=== PATIENT | female | born 1995 | race Caucasian/White ===

== ENCOUNTER 2017-06-05 10:50 | Emergency (ER) | payer BC ==
[2017-06-05 11:14] LABS: URINE APPEARANCE CLEAR; URINE BILIRUBIN NEGATIVE (NEGATIVE); URINE BLOOD MODERATE (NEGATIVE); URINE COLOR YELLOW; URINE GLUCOSE (UA) NEGATIVE (NEGATIVE); URINE KETONE NEGATIVE (NEGATIVE); URINE LEUKOCYTE ESTERASE TRACE (NEGATIVE); URINE NITRITE NEGATIVE (NEGATIVE); URINE PROTEIN NEGATIVE (NEGATIVE); URINE UROBILINOGEN 0.2 E.U./dL (0.20 - 1.00)
--- NOTE | 2017-06-05 11:14 | Emergency Department Record ---
History of Present Illness - General Chief Complaint: Abdominal Pain Stated Complaint: ABD PAIN Time Seen by Provider: 06/05/17 10:55 Source: Patient, Family Mode of Arrival: Ambulatory Limitations: No limitations - History of Present Illness Initial Comments: 21 yo female presents with blood in her urine that started on Monday. She noted drops of blood in the toilet. Starting the last day she has developed lower abdominal cramps as well. She started a menstrual cycle that seems more uncomfortable that a typical cycle. She has had a new vaginal discharge the last 3 weeks. No fever. No nausea or vomiting. No diarrhea or blood in the stool. No fever, sore throat, cough. MD Complaint: Abdominal pain, Other -: Days(s) Location: Suprapubic Radiation: Suprapubic Migration to: Suprapubic Quality: Aching, Burning Improves With: Nothing Worsens With: Other (Urintation) Associated Symptoms: Denies other symptoms - Related Data Previous Rx's Medication Instructions Recorded Nitrofurantoin Monohyd/M-Cryst 100 mg PO BID #14 capsule 06/05/17 [Macrobid 100 mg Capsule] Allergies Allergy/AdvReac Type Severity Reaction Status Date / Time No Known Drug Allergies Allergy Verified 06/05/17 11:20 Review of Systems Constitutional: Denies: Chills, Fever, Malaise, Weakness Eyes: Denies: Eye discharge, Eye pain, Photophobia, Vision change ENT: Denies: Congestion, Throat pain Respiratory: Denies: Cough, Dyspnea, Hemoptysis, Stridor, Wheezes Cardiovascular: Denies: Chest pain, Palpitations, Syncope Endocrine: Denies: Fatigue, Polydipsia, Polyuria Gastrointestinal: Reports: As per HPI, Abdominal pain. Denies: Constipation, Diarrhea, Hematemesis, Hematochezia, Melena, Nausea, Vomiting Genitourinary: Reports: Abnormal menses, Dysuria, Frequency, Hematuria Musculoskeletal: Denies: Arthralgia, Back pain, Neck pain Skin: Denies: Bruising, Change in color, Pruritus Neurological: Denies: Headache, Numbness, Weakness Psychiatric: Denies: Anxiety Hematological/Lymphatic: Denies: Blood Clots, Easy bleeding, Easy bruising, Swollen glands Physical Exam - General General Appearance: Alert, Oriented x3, Cooperative, No acute distress Limitations: No limitations - Head Head exam: Atraumatic, Normocephalic, Normal inspection - Eye Eye exam: Normal appearance, PERRL. negative: Conjunctival injection, Periorbital swelling, Scleral icterus - ENT ENT exam: Normal exam Ear exam: Normal external inspection Nasal Exam: Normal inspection Mouth exam: Normal external inspection - Neck Neck exam: Normal inspection - Respiratory Respiratory exam: Normal lung sounds bilaterally. negative: Respiratory distress - Cardiovascular Cardiovascular Exam: Regular rate, Normal rhythm, Normal heart sounds - GI/Abdominal GI/Abdominal exam: Soft, Tenderness (mild suprapubic tenderness) - Rectal Rectal exam: Deferred - exam: Adnexal tenderness (L), Adnexal tenderness (R), Normal external exam, Vaginal bleeding. negative: Abnormal external exam, Adnexal mass (L), Adnexal mass (R), Cervical discharge, cervical motion tenderness, Vaginal discharge, Vaginal erythema - Extremities Extremities exam: Normal inspection, Full ROM, Normal capillary refill. negative: Pedal edema, Tenderness - Back Back exam: Reports: Normal inspection. Denies: CVA tenderness (R), CVA tenderness (L) - Neurological Neurological exam: Alert, Normal gait, Oriented X3 - Psychiatric Psychiatric exam: Normal affect, Normal mood. negative: Agitated, Anxious - Skin Skin exam: Dry, Intact, Normal color, Warm Course - Reevaluation(s) Reevaluation #1: 06/05/17 11:53 UA with indication for infection with WBC and Bacteria Culture will be sent Pelvic completed 06/05/17 11:54 The HCG is negative 06/05/17 12:42 The Wet prep is negative 06/05/17 13:19 Pelvic US is negative for any acute process She will be treated for the UTI Disposition Disposition: Discharge Clinical Impression: Urinary tract infection Qualifiers: Urinary tract infection type: site unspecified Hematuria presence: with hematuria Qualified Code(s): N39.0 - Urinary tract infection, site not specified Disposition: Home, Self-Care Condition: (1) Good Instructions: Urinary Tract Infection in Women (ED) Additional Instructions: Return if worse, fever, vomiting, uncontrolled pain or any new concerns Take the antibiotics as directed Follow up with your doctor this week for a recheck of your symptoms Prescriptions: Nitrofurantoin Monohyd/M-Cryst [Macrobid 100 mg Capsule] 100 mg PO BID #14 capsule Forms: Patient Portal Access Time of Disposition: 13:21 Quality - Quality Measures Quality Measures: N/A - Blood Pressure Screening Does Patient Have Any of the Following: No Blood Pressure Classification: Normal BP Reading Systolic Measurement: 98 Diastolic Measurement: 70 Screening for High Blood Pressure: < Normal BP, F/U Not Required > [G8783]
[2017-06-05 11:22] LABS: HCG,QUALITATIVE URINE NEGATIVE (NEGATIVE)
[2017-06-05 11:34] LABS: URINE BACTERIA 3+; URINE WBC 21 - 35 (0-2/hpf)
[2017-06-05] MEDS: ACETAMINOPHEN 500 MG TABLET PO ONE (11:34)
[2017-06-05] MEDS: NITROFURANTOIN MONO 100 MG CAPSULE PO ONE (12:08)
--- NOTE | 2017-06-06 12:10 | ULTRASOUND REPORT ---
EXAM: PELVIC ULTRASOUND HISTORY: PELVIC PAIN. TECHNIQUE: Transabdominal and transvaginal sonographic images of the pelvis were obtained. Comparison: None. FINDINGS: On transabdominal images the uterus measures 7.6 x 2.3 x 4.3 cm. The endometrium and ovaries are not well seen transabdominally. The myometrium is homogeneous. On transvaginally imaging, the endometrium measures 4 mm in thickness. The myometrium is homogeneous. The right ovary measures 2.8 x 2.2 x 2.0 cm and the left ovary measures 3.4 x 1.7 x 2.1 cm. Doppler and spectral analysis with color flow was utilized. Arterial and venous flow to both ovaries. Bilateral ovarian follicles. No solid adnexal mass. No free fluid. IMPRESSION: UNREMARKABLE ULTRASOUND OF THE PELVIS. JOB NUMBER: [id number] MTDD
[2017-06-07 01:35] LABS: GC SPECIMEN TYPE Vaginal
== END 2017-06-05 14:00 | disposition home or self-care (01) ==
LOC: ER 10:50
DX: N39.0 Urinary tract infection, site not specified (principal); R10.2 Pelvic and perineal pain; A74.9 Chlamydial infection, unspecified
CPT/HCPCS: 99284 ×2; 81001; 81025; 76856; 76830; Q0111; 87210

== ENCOUNTER 2019-10-15 09:04 | Emergency (ER) | payer SELFPAY ==
[2019-10-15] MEDS ORDERED: ONDANSETRON 4 MG ODT TABLET SL ONE (09:19)
--- NOTE | 2019-10-15 09:22 | Emergency Department Record ---
History of Present Illness - General Chief complaint: Flu Like Symptoms Stated complaint: SEVERE FLU Time Seen by Provider: 10/15/19 09:13 Source: Patient Mode of Arrival: Ambulatory Limitations: No limitations - History of Present Illness Initial comments: The patient is here due to being ill for 4 days with Influenza type symptoms. She has had body aches, a fever, MILLER, cough and mild nausea. There has been no vomiting, diarrhea, or any trouble breathing. The patient has no medical issues and did not get a flu shot this year. MD Complaint: Generalized weakness, Lack of energy Onset/Timin -: Days(s) Severity: Moderate Severity scale (1-10): 7 Quality: Aching Consistency: Constant - [place] Coma Scale Eye Response: (4) Open spontaneously Motor Response: (6) Obeys commands Verbal Response: (5) Oriented Rissa Total: 15 - Related Data Previous Rx's Medication Instructions Recorded Ondansetron [Zofran Odt] 4 mg SL .Q4-6H PRN #12 tab.rapdis 10/15/19 Allergies Allergy/AdvReac Type Severity Reaction Status Date / Time No Known Drug Allergies Allergy Verified 10/15/19 09:13 Travel/Exposure Screening - Travel/Exposure Within Last 30 Days Have you traveled within the last 30 days?: No - Travel/Exposure Within Last Year Have you traveled outside the [place] in the last year?: No - Additonal Travel/Exposure Details Have you been exposed to anyone with a communicable illness?: No - Travel Symptoms Symptom Screening: None Review of Systems Constitutional: Reports: Chills, Fever, Malaise Eyes: Denies: Eye discharge ENT: Denies: Congestion Respiratory: Reports: Cough. Denies: Dyspnea Cardiovascular: Denies: Chest pain Past Medical History - SOCIAL HISTORY Smoking Status: Current every day smoker Alcohol Use: None Drug Use: None - RESPIRATORY Hx Respiratory Disorders: No - CARDIOVASCULAR Hx Cardio Disorders: No - NEURO Hx Neuro Disorders: No - GI Hx GI Disorders: No - Hx Genitourinary Disorders: No - ENDOCRINE Hx Endocrine Disorders: No Hx Diabetes: No Hx Thyroid Disease: No - MUSCULOSKELETAL Hx Musculoskeletal Disorders: No - PSYCH Hx Psych Problems: No - HEMATOLOGY/ONCOLOGY Hx Hematology/Oncology Disorders: No Family Medical History Any Significant Family History?: Yes Hx Dementia: Grandparents Hx Heart Disease: Grandparents Physical Exam - General General Appearance: Alert, Oriented x3, Cooperative, No acute distress - Head Head exam: Atraumatic, Normocephalic, Normal inspection - Eye Eye exam: Normal appearance, PERRL, EOMI. negative: Conjunctival injection - ENT ENT exam: Normal exam, Mucous membranes moist, Normal external ear exam, Normal orophraynx, TM's normal bilaterally Throat exam: Normal inspection. negative: Tonsillar erythema, Tonsillar exudate - Neck Neck exam: Normal inspection, Full ROM. negative: Lymphadenopathy, Meningismus, Tenderness - Respiratory Respiratory exam: Normal lung sounds bilaterally. negative: Respiratory distress - Cardiovascular Cardiovascular Exam: Regular rate, Normal rhythm, Normal heart sounds - GI/Abdominal GI/Abdominal exam: Soft, Normal bowel sounds. negative: Tenderness - Extremities Extremities exam: Normal inspection, Full ROM, Normal capillary refill. negative: Tenderness - Neurological Neurological exam: Alert, Normal gait, Oriented X3. negative: Abnormal gait, Altered, Motor sensory deficit - Skin Skin exam: negative: Rash Course Vital Signs 10/15/19 09:06 Temperature 99.3 F Pulse Rate 117 H Respiratory 20 Rate Blood Pressure 106/68 Pulse Ox 97 - Reevaluation(s) Reevaluation #1: The patient is doing better at this time. I did discuss the positive Flu B with the patient and the mild to moderate dehydration. Her CXR was neg and I do believe she will benefit from Zofran at home. She is to see her PCP later this week for recheck and to return to the ER for any worsening issues. 10/15/19 10:45 Medical Decision Making - Data Complexity MDM Data: Labs Ordered and/or Reviewed, X-Ray Ordered and/or Reviewed (CXR: Neg per Rad.) - Lab Data Result diagrams: 10/15/19 10:02 10/15/19 10:02 Disposition Disposition: Discharge Clinical Impression: Dehydration Disposition: Home, Self-Care Condition: (2) Stable Instructions: Influenza (ED) Additional Instructions: Please use the Zofran for nausea and use Tylenol and Motrin for fever and body aches. Please see your family doctor in 3 days if not better and return to the ER for any worsening issues. Prescriptions: Ondansetron [Zofran Odt] 4 mg SL .Q4-6H PRN #12 tab.rapdis PRN Reason: Nausea Forms: Patient Portal Access Time of Disposition: 10:44 Quality - Quality Measures Quality Measures: N/A - Blood Pressure Screening View Details: Yes Does Patient Have Any of the Following: No Blood Pressure Classification: Normal BP Reading Systolic Measurement: 106 Diastolic Measurement: 68 Screening for High Blood Pressure: < Normal BP, F/U Not Required > [G8783]
[2019-10-15 09:28] LABS: INFLUENZA A NEGATIVE (NEGATIVE); INFLUENZA B POSITIVE (NEGATIVE)
[2019-10-15 09:28] LABS: URINE APPEARANCE CLEAR; URINE BILIRUBIN NEGATIVE (NEGATIVE); URINE BLOOD TRACE-I (NEGATIVE); URINE COLOR YELLOW; URINE GLUCOSE (UA) NEGATIVE (NEGATIVE); URINE KETONE 40 mg/dL (NEGATIVE); URINE LEUKOCYTE ESTERASE NEGATIVE (NEGATIVE); URINE NITRITE NEGATIVE (NEGATIVE); URINE UROBILINOGEN 0.2 E.U./dL (0.20 - 1.00)
[2019-10-15] MEDS ORDERED: IBUPROFEN 600 MG TABLET PO ONE (09:32)
[2019-10-15 09:34] LABS: HCG,QUALITATIVE URINE NEGATIVE (NEGATIVE); URINE EPITHELIAL CELLS 0 - 2 (FEW); URINE RBC 0 - 2 (NONE SEEN); URINE WBC NONE SEEN (0-2/hpf)
[2019-10-15] MEDS ORDERED: 0.9 % SODIUM CHLORIDE 1,000 ML BAG IV ONE (09:49)
--- NOTE | 2019-10-15 10:03 | RADIOLOGY REPORT ---
EXAMINATION: Two View Chest Radiographs EXAM DATE: 10/15/2019 9:41 AM TECHNIQUE: Frontal and lateral views INDICATION: cough COMPARISON: None ENCOUNTER: Not applicable FINDINGS: The heart, mediastinum, and pulmonary vasculature are normal. No lung consolidation or pleural effu sions are present. IMPRESSION: No acute cardiopulmonary process Dictated by: Gurvinder Rowley MD on 10/15/2019 9:59 AM. .
[2019-10-15 10:09] LABS: ABSOLUTE NEUTROPHIL COUNT 1.37; HEMATOCRIT 40.2 % (35.0-47.0); HEMOGLOBIN 12.8 gm/dl (11.6-16.0); MEAN CORPUSCULAR HGB CONC 31.8 g/dl (32-36); MEAN PLATELET VOLUME 10.3 fl (7.4-10.4); PLATELET COUNT 219 K/uL (130-400); RED BLOOD COUNT 4.57 M/uL (3.80-5.40); RED CELL DISTRIBUTION WIDTH 13.8 % (11.5-14.5); WHITE BLOOD COUNT W/O DIFF 3.2 K/uL (4.2-12.2)
[2019-10-15 10:18] LABS: BLOOD UREA NITROGEN 7 mg/dL (6-20); CREATININE 0.6 mg/dL (0.5-0.9); EST GLOMERULAR FILTRATION RATE > 60 mL/min
[2019-10-15 10:19] LABS: TOTAL PROTEIN 7.1 g/dL (6.6-8.7)
[2019-10-15 10:21] LABS: GLUCOSE,RANDOM 89 mg/dL (74-109); PLATELET ESTIMATE NORMAL (NORMAL)
[2019-10-15 10:23] LABS: ALB/GLOB RATIO 1.7 (1.1-1.8); ALBUMIN 4.5 g/dL (4.0-5.0); ALT/SGPT 11 U/L (<33); AST/SGOT 14 U/L (10.0-35.0)
[2019-10-15 10:24] LABS: ALKALINE PHOSPHATASE 60 U/L (35-104)
== END 2019-10-15 10:54 | disposition home or self-care (01) ==
LOC: ER 09:04
DX: J10.1 Influenza due to other identified influenza virus with other respiratory manifestations (principal); E86.0 Dehydration; R53.1 Weakness; F17.210 Nicotine dependence, cigarettes, uncomplicated
CPT/HCPCS: 71046; 80053; 81001; 81025; 85027; 87400; 96360; 99284; J7030